=== PATIENT | female | born 1965 | race Caucasian/White ===

== ENCOUNTER 2024-10-02 20:11 | Emergency (ER) | payer BC, SELFPAY ==
--- NOTE | ~2024-10-02 | XR_ITS ---
HISTORY: Knee injury, twisted on Sunday COMPARISON: None TECHNIQUE: 3 views of the left knee were performed FINDINGS: No acute or subacute fracture, erosion, lytic or sclerotic lesion. Medial tibiofemoral joint space narrowing is identified. Small suprapatellar joint effusion is identified. The infrapatellar joint space is clear. IMPRESSION: Small suprapatellar joint effusion without focal infiltrate. Reviewed, dictated and finalized at location A.
[2024-10-02 20:12] VITALS: BP 145/98; PULSE 68; RESP 18; TEMP 36.2; O2SAT 100
--- OUTSIDE RECORDS SUMMARY | 2024-10-02 20:13 | XMS_ITS | Referral Summary ---
Author Organization [facility] at the [facility] Address [address] [place] [address] Care Team Providers Care Marine Safety Officer Name Role Phone Karuna Akins NP Primary Care Provider Allergies Active Allergy Reactions Criticality Noted Date Comments Clonidine Hcl Agitation Low 09/05/2018 Doxazosin Vomiting Low 09/05/2018 Flu Vaccine [id number](5yrup)Pf Vomiting Low 02/01 Monosodium Glutamate Swelling High 11/08/2015 Medications metoprolol XL (TOPROL-XL) 50 mg extended release tabletIndication s:Essential (primary) hypertension Take 1 tablet (50 mg total) by mouth daily 90 tablet 4 08/30/19 24 Active phentermine 37.5 mg capsuleIndicatio ns:BMI 35.0-35.9,adult Take 1 capsule by mouth in the morning 30 capsule 04/17/20 24 Active pregabalin (LYRICA) 75 mg capsuleIndicatio ns:Chronic bilateral low back pain without sciatica Take 1 capsule (75 mg total) by mouth 2 (two) times a day 60 capsule 3 06/19/19 25 Active traMADoL (ULTRAM) 50 mg tabletIndication s:Chronic bilateral low back pain without sciatica Take 1 tablet (50 mg total) by mouth every 6 (six) hours as needed for pain 120 tablet 4 06/19/19 25 Active zolpidem (AMBIEN) 10 mg tabletIndication s:Primary insomnia Take 1 tablet (10 mg total) by mouth nightly 30 tablet 3 06/19/19 25 Active amLODIPine (NORVASC) 10 mg tabletIndication s:Essential (primary) hypertension Take 1 tablet by mouth once daily 100 tablet 1 09/11/19 25 Active losartan (COZAAR) 100 mg tabletIndication s:Essential (primary) hypertension Take 1 tablet by mouth once daily 100 tablet 1 09/11/19 25 Active amLODIPine (NORVASC) 10 mg tabletIndication s:Essential (primary) hypertension Take 1 tablet by mouth once daily 90 tablet 08/12/19 25 025 Discontinued losartan (COZAAR) 100 mg tabletIndication s:Essential (primary) hypertension Take 1 tablet by mouth once daily 90 tablet 08/12/19 25 025 Discontinued Active Problems Problem Noted Date Diagnosed Date Status post bariatric surgery 11/05/2023 Obesity (BMI 30-39.9) 03/20/2022 Assessment & Plan (12/04/2022 2:49 PM CDT): Discussed the patients BMI: The BMI is above average BMI management is complete. BMI follow-up includes: Nutrition Counseling and education provided Discussed the patients BMI: The BMI is above average BMI management is complete. BMI follow-up includes: Nutrition Counseling and education provided Assessment & Plan (03/20/2022 9:12 AM CDT): Obesity is unchanged. Discussed the patient's BMI. The BMI is above average. BMI management plan is completed. BMI Follow-up includes: nutrition counseling, exercise counseling and education provided. Neck pain 08/19/2019 Left renal stone 04/22/2019 Pure hypercholesterolemia 09/24/2018 Chronic bilateral low back pain without sciatica 05/07/2017 Gastroesophageal reflux disease without esophagi tis 05/07/2017 Essential (primary) hypertension 08/18/2015 Insomnia 08/18/2015 Vitamin D deficiency 08/18/2015 Resolved Problems Problem Noted Date Diagnosed Date Resolved Date Cellulitis of multiple sites of head and neck 07/24/19 23 11/05/2023 Hypertensive urgency 07/24/2022 024 Ureteric stone 07/24/2022 06/19/2024 Urinary tract infectious disease 07/24/2022 06/19/2024 Obesity, Class I, BMI 30-34.9 07/24/2022 06/19/2024 Well child examination 07/24/202208/29 Renal pelvis enlarged on ultrasound 07/24/2022 06/19/2024 New onset of headaches after age 50 07/24/2022 06/19/2024 BMI 35.0-35.9,adult 03/20/2022 06/19/19 25 Assessment & Plan (03/20/2022 9:12 AM CDT): Obesity is unchanged. Discussed the patient's BMI. The BMI is above average. BMI management plan is completed. BMI Follow-up includes: nutrition counseling, exercise counseling and education provided. Right arm pain 10/21/2021 06/19/2024 Overview (10/21/2021): Have cervical x-rays completed. Start Lyrica 75 mg twice daily. Stop gabapentin. We will notify you of the x-ray results when they return BMI 28.0-28.9,adult 10/28/2020 03/20/20 22 Weight gain 12/30/2019 06/19/2024 Encounter for screening mamm ogram for malignant neoplasm of breast 08/19/2019 06/19/2024 BMI 34.0-34.9,adult 04/22/2019 03/20/20 22 Hypertension, essential 09/24/201810/26 Post-op pain 05/08/2017 06/19/2024 Post-operative nausea and vomiting 05/08/2017 06/19/2024 Benign hypertension 05/07/2017 11/05/19 24 Dyspnea on exertion 05/02/2017 11/05/19 24 Morbid obesity due to excess calories 09/21/2016 03/20/2022 Immunizations Immunization Administration Dates Next Due Influenza, Unspecified 06/19/2024(Deferr ed: Patient Refused),05/24/2023(Deferred: Patient Refused),08/24/2022(Deferred: Patient Refused),07/24/2022(Deferred: Patient Refused) Tdap 10/12/2012 Varicella 08/30/2023(Deferred: History of disease) Social History Tobacco Use Types Packs/Day Years Used Date Smoking Tobacco: Never Cigarettes Smokeless Tobacco: Never Tobacco Cessation:Counseling Given: Not Answered Alcohol Use Standard Drinks/Week Comments Not Currently 0 (1 standard drink = 0.6 oz pur e alcohol) AUDIT-C Answer Date Recorded Q1: How often do you have a drink containing alcohol? Never 08/30/2023 Q2: How many drinks containi ng alcohol do you have on a typical day when you are drinking? Patient does not drink Q3: How often do you have si x or more drinks on one occasion? Never 08/30/2023 PHQ-2 Answer Date Recorded PHQ-2 Total Score (If total score is 3 or more points, staff should administer the PHQ-9) 0 11/05/2023 Comments Unknown Sex and Gender Information Value Date Recorded Sex Assigned at Not on file Legal Sex Female 3:29 AM COMMUNITY SERVICE TECHNICIAN Gender Identity Not on file Sexual Orientation Not on file Last Filed Vital Signs Vital Sign Reading Time Taken Comments Blood Pressure 124/88 06/19/2024 8:36 AM COMMUNITY SERVICE TECHNICIAN Pulse 65 06/19/2024 8:36 AM COMMUNITY SERVICE TECHNICIAN Temperature 36.7 C (98 F) 06/19/2024 8:36 AM COMMUNITY SERVICE TECHNICIAN Respiratory Rate 16 06/19/2024 8:36 AM COMMUNITY SERVICE TECHNICIAN Oxygen Saturation 98% 06/19/2024 8:36 AM COMMUNITY SERVICE TECHNICIAN Inhaled Oxygen Concentration - - Weight 101.2 kg (223 lb) 06/19/2024 8:36 AM COMMUNITY SERVICE TECHNICIAN Height 170.2 cm (5' 7 ) 06/19/2024 8:36 AM COMMUNITY SERVICE TECHNICIAN Body Mass Index 34.93 06/19/2024 8:36 AM COMMUNITY SERVICE TECHNICIAN Plan of Treatment Not on file Procedures Procedure Name Priority Date/Time Associated Diagnosis Comments PAP AND HPV, REFLEX TO HPV GENOTYPES Routine 11/05/2023 1:37 PM CDT Encounter for well woman exam with routine gynecological exam HM COLONOSCOPY Routine 04/22/2017 SCREENING MAMMOGRAM 2D BILATERAL Routine 03/25/2013 2:48 PM CDT from Last 3 Months or Most Recently Relevant to Health Maintenance Results * Pap and HPV, reflex to HPV Genotypes (11/05/2023 1:37 PM CDT) Pathologist [facility] CLINICAL INFORMATION: [facility] Comment:Postmenopausal LMP [facility] Comment:2020 Previous Pap [facility] Comment:None given Prev. Bx [facility] Comment:None given SOURCE: [facility] Comment:Cervix, Endocervix Pap, specimen adequacy [facility] Comment:SATISFACTORY FOR MARTINE LUATION HPV interp [facility] Comment: Cytology Results: Negative for intraepithelial lesion or malignancy. Atrophic pattern; predominantly parabasal cells COMMENTS [facility] Comment: This Pap test has been evaluated with computer assisted technology. Title I Instructional Assistant [facility] Comment: CAK, CT(ASCP) CT Screening Location: [place] [address] [place] [address] Comment [facility] Comment: EXPLANATORY NOTE: The Pap is a screening test for cervical cancer. It is not a diagnostic test and is subject to false negative and false positive results. It is most reliable when a satisfactory sample, regularly obtained, is submitted with relevant clinical findings and history, and when the Pap result is evaluated along with historic and current clinical information. Human papillomavirus DNA, High Risk E6/E7 Not Detected NOT DETECTED [employer] [facility]ika [facility] Comment: Not Detected High Risk HPV types (16,18,31,33,35,39,45,51,52, 56,58,59,66,68) were not detected. Other HPV types which cause anogenital lesions may be present. The significance of the other types of HPV in malignant processes has not been established. Methodology: Real Time PCR Thin prep 11/05/2023 1:37 PM CDT 11/06/2023 4:02 AM CDT Karuna Akins PEDIATRIC ALLERGIST LAB CYTOLOGY ORDERABLES Final Result [facility] [address] [address] [employer]/[place] [address] [place] [address] * COLONOSCOPY (04/22/2017) Pathologist [facility]oscopy Normal Comment:Dr. Gallagher in [facility] s [place] Historical Provider HEALTH MAINTENANCE Final Result * Screening Mammogram 2D Bilateral (03/25/2013 2:48 PM CDT) Anatomical Region Laterality Modality Breast Bilateral Mammography 03/25/2013 2:48 PM CDT Impressions 03/25/2013 4:42 PM CDT No mammographic evidence of malignancy. Recommend routine annual screening mammography. ASSESSMENT: BIRADS: 1 - Negative A letter will be mailed to the patient with the results and recommendations. The patient will be entered into a reminder system for an annual screening mammogram in 1 year. THIS IS AN ELECTRONICALLY VERIFIED REPORT 03/25/2013 4:39 PM: Blaine Alba M.D. Blaine Alba M.D. MD: 04:39 PM 04:39 PM [facility] [EOD] Narrative 03/25/2013 4:42 PM CDT EXAMINATION: Bilateral screening mammography HISTORY: Routine screening mammogram. 48-year-old female with no prior reported breast procedures. Maternal aunt diagnosed with breast cancer at age 55. COMPARISON: 03/06/2011 TECHNIQUE: Bilateral digital full field of view mammography was performed, with the aid of computer aided detection (CAD). FINDINGS: Bilateral breast tissue is almost entirely fat density. No significant mass, microcalcifications, or other findings are seen. No suspicious interval change is seen relative to the prior studies. Procedure Note Provider, MD Sharon - 10/12/2020 EXAMINATION: Bilateral screening mammography HISTORY: Routine screening mammogram. 48-year-old female with no prior reported breast procedures. Maternal aunt diagnosed with breast cancer atage 55. COMPARISON: 03/06/2011 TECHNIQUE: Bilateral digital full field of view mammography wasperformed, with the aid of computer aided detection (CAD). FINDINGS: Bilateral breast tissue is almost entirely fat density. No significant mass, microcalcifications, or other findings are seen. No suspicious interval change is seen relative to the prior studies. IMPRESSION: No mammographic evidence of malignancy. Recommend routine annualscreening mammography. ASSESSMENT: BIRADS: 1 - Negative A letter will be mailed to the patient with the results andrecommendations. The patient will be entered into a reminder system for an annual screening mammogram in 1 year. THIS IS AN ELECTRONICALLY VERIFIED REPORT 03/25/2013 4:39 PM: Blaine Alba M.D. Blaine Alba M.D. MD: 04:39 PM 04:39 PM [facility] [EOD] Karuna Akins NP IMG MAMMO PROCEDURES Fi nal Result from Last 3 Months or Most Recently Relevant to Health Maintenance Insurance [facility] CHOICE PLUS Care Teams Marine Safety Officer Relationship Specialty Start Date End Date Karuna Akins NP [address] [address] PCP - General Family Medicine 08/30/23
--- OUTSIDE RECORDS SUMMARY | 2024-10-02 20:13 | XMS_ITS | Clinical Summary ---
Author Organization [facility] Address [address] [place] [address] Care Team Providers Care Pcas Name Role Phone Karuna Akins Primary Care Provider [phone] Allergies Active Allergy Reactions Criticality Noted Date Comments Clonidine Other (see comment),Anxiety,Unk nown Low 05/07/2017 Stated it made her very angry Stated it made her very angry Cyclobenzaprine GI Upset 02/04/2024 Doxazosin Unknown 09/05/2018 Influenza Virus Vaccine Unknown 02/01/2017 Monosodium Glutamate Unknown High 10/14/2012 Nsaids GI Upset 02/04/2024 Medications losartan (COZAAR) 100 MG tablet Take 1 tablet (100 mg total) by mouth daily. 12/04/2022 Active amLODIPine (NORVASC) 10 MG tablet Take 1 tablet (10 mg total) by mouth daily. 12/04/2022 Active zolpidem (AMBIEN) 10 MG tablet Take 0.5 tablets (5 mg total) by mouth nightly as needed. 12/04/2022 Active pregabalin (LYRICA) 75 MG capsule Take 1 capsule (75 mg total) by mouth 2 (two) times daily. 12/04/2022 Active traMADol (ULTRAM) 50 MG tablet Take 1 tablet (50 mg total) by mouth every 6 (six) hours as needed. 12/04/2022 Active HYDROcodone-yesi taminophen (NORCO) 5-325 MG tabletIndicatio ns:Acute Pain < 3 Day Supply Take 1 tablet by mouth every 6 (six) hours as needed for Pain. Indications: Acute Pain < 3 Day Supply 5 tablet 02/04/2024 Active Social History Tobacco Use Types Packs/Day Years Used Date Smoking Tobacco: Never Smokeless Tobacco: Never Tobacco Cessation:Counseling Given: Not Answered Alcohol Use Standard Drinks/Week Comments Never 0 (1 standard drink = 0.6 oz pur e alcohol) Comments No Sex and Gender Information Value Date Recorded Sex Assigned at Not on file Legal Sex Female 6:54 PM CDT Gender Identity Not on file Sexual Orientation Not on file Last Filed Vital Signs Vital Sign Reading Time Taken Comments Blood Pressure 123/96 02/04/2024 1:12 AM CDT Pulse 77 02/04/2024 1:12 AM CDT Temperature 36.1 C (97 F) 02/04/2024 1:12 AM CDT Respiratory Rate 20 02/04/2024 1:12 AM CDT Oxygen Saturation 100% 02/04/2024 1:12 AM CDT Inhaled Oxygen Concentration - - Weight 91.2 kg (201 lb) 02/04/2024 1:12 AM CDT Height 170.2 cm (5' 7 ) 02/04/2024 1:12 AM CDT Body Mass Index 31.48 02/04/2024 1:12 AM CDT Plan of Treatment Health Maintenance Due Date Last Done Comments Cervical Cancer Screening Pa p Smear (Age 30 to 64) Every 3 Years 1967 Colorectal Cancer Screening Colonoscopy (10 Years) 1967 Annual Physical 1970 Hepatitis C 1985 Hepatitis B Vaccines (1 of 3 - 19+ 3-dose series) 1986 Cervical Cancer Screening Pa p with HPV Testing (Age 30 to 64) Every 5 Years 1997 Cervical Cancer Screening with HPV 1997 Mammogram Screening 03/25/2015 03/25/2013 Pneumococcal Vaccine: 50+ Ye ars (1 of 1 - PCV) 2017 Zoster Vaccines (1 of 2) 2017 DTaP, Tdap and Td Vaccines ( 2 - Td or Tdap) 10/12/2022 10/12/2012 COVID-19 Vaccine (2023-2 5 season) 2024 Meningococcal B Vaccine Aged Out No l onger eligible based on patient's age to complete this topic Meningococcal Vaccine Aged Out No robbie maggie eligible based on patient's age to complete this topic RSV Immunizations Under 20 Months Aged Out No longer eligible based on patient's age to complete this topic Insurance [facility] [address] Care Teams Pcas Relationship Specialty Start Date End Date Karuna Akins APNP [address] [id number] PCP - General NURSE PRACTITIONER 01/05/24
--- OUTSIDE RECORDS SUMMARY | 2024-10-02 20:13 | XMS_ITS | Clinical Summary ---
Author Organization [facility] at [facility] Address [address] [place] [address] Care Team Providers Care Tack Picker Name Role Phone Karuna Akins NP Primary Care Provider Allergies Active Allergy Reactions Criticality Noted Date Comments Clonidine Hcl Agitation Low 09/05/2018 Doxazosin Vomiting Low 09/05/2018 Flu Vaccine [id number](5yrup)Pf Vomiting Low 02/01 Monosodium Glutamate Swelling High [...] Tdap 10/12/2012 Varicella 08/30/2023(Deferred: History of disease) Surgical History Surgery Date Site/Laterality Comments SECTION BARIATRIC SURGERY KIDNEY STONE SURGERY 04/15/2019 stent for kidney stone left Medical History Medical History Date Comments HTN (hypertension) Insomnia Morbid obesity (HCC) Anxiety Depression Thyroid disease Neuromuscular disorder (HCC) Kidney stone Family History Medical History Relation Name Comments Asthma Brother Yair Alcohol abuse Father Yair brandlos Asthma Father Yair brandlos COPD Father Yair brandlos Cancer Father Yair brandlos Hearing loss Father Yair brandlos Heart disease Father Yair brandlos Hypertension Father Yair brandlos Arthritis Mother Sherlyn Diabetes Mother Sherlyn Hypertension Mother Sherlyn Miscarriages / Stillbirths Sister 1 Luisa Obesity Sister 2 Julissa Drug abuse Son 1 Leo Drug abuse Son 2 Rell Relation Name Status Comments Brother Yair Father Yair espinosas Mother Sherlyn Alive Sister 1 Luisa Sister 2 Julissa Son 1 Leo Son 2 Rell Social History Tobacco Use Types Packs/Day Years [...] on file Legal Sex Female 3:29 AM LOAN OFFICER ASSISTANT Gender Identity Not on file Sexual Orientation Not on file Obstetrics History Last Filed Vital Signs Vital Sign Reading Time Taken Comments Blood Pressure 124/88 06/19/2024 8:36 AM LOAN OFFICER ASSISTANT Pulse 65 06/19/2024 8:36 AM LOAN OFFICER ASSISTANT Temperature 36.7 C (98 F) 06/19/2024 8:36 AM LOAN OFFICER ASSISTANT Respiratory Rate 16 06/19/2024 8:36 AM LOAN OFFICER ASSISTANT Oxygen Saturation 98% 06/19/2024 8:36 AM LOAN OFFICER ASSISTANT Inhaled Oxygen Concentration - - Weight 101.2 kg (223 lb) 06/19/2024 8:36 AM LOAN OFFICER ASSISTANT Height 170.2 cm (5' 7 ) 06/19/2024 8:36 AM LOAN OFFICER ASSISTANT Body Mass Index 34.93 06/19/2024 8:36 AM LOAN OFFICER ASSISTANT Plan of Treatment Health Maintenance Due Date Last Done Comments Hepatitis C Screening 1967 Hepatitis B Screening 1985 Breast Cancer Screening-Mammogram 03/25/2014 03/25/2013 Zoster Vaccine (1 of 2) 2017 DTaP/Tdap/Td Vaccine (2 - Td or Tdap) 10/12/2022 10/12/2012 Cervical Cancer Screening 11/04/2024 11/05/2023 Depression Screening 11/04/2024 11/05/2023, 12/04/2022, 10/21/2021, Additional history exists Regular Well Visit/Exam 18-64 11/04/2024 11/05/2023, 03/20/2022 Influenza Vaccine (Season Ended) 2025 Colon Cancer Screening-Colonoscopy 04/22/2027 04/22/2017 Colon Cancer Screening-CT Colonography Discontinued 04/22/2017 Colon Cancer Screening-DNA Stool Discontinued 04/22/2017 Colon Cancer Screening-FIT Discontinued 04/22/2017 Colon Cancer Screening-Sigmoidoscopy Discontinued 04/22/2017 Pneumococcal vaccine <65 Aged Out No longer eligible based on patient's age to complete this topic Procedures Procedure Name Priority Date/Time Associated Diagnosis [...] to HPV Genotypes (11/05/2023 1:37 PM CDT) [facility] Comment:2019 [facility] Comment:None given [facility]v. Bx [facility] Comment:None given [facility]OURCE: [facility] Comment:Cervix, Endocervix Pap, specimen adequacy [facility] Comment:SATISFACTORY FOR MARTINE LUATION HPV interp [facility] Comment: Cytology Results: Negative for intraepithelial lesion or malignancy. Atrophic pattern; predominantly parabasal cells COMMENTS [facility] Comment: This Pap test has been evaluated with computer assisted technology. J2E[employer] Application Developer [facility] Comment: CAK, CT(ASCP) CT Screening Location: [place] [address] [place] [address] Comment [facility] Comment: EXPLANATORY NOTE: The Pap is a [...] High Risk E6/E7 Not Detected NOT DETECTED [employer] /[facility]ika [facility] [place] Comment: Not Detected High Risk HPV types (16,18,31,33,35,39,45,51,52, 56,58,59,66,68) were not detected. Other HPV types which cause anogenital lesions may be present. The significance of the other types of HPV in malignant processes has not been established. Methodology: Real Time PCR Thin prep 11/05/2023 1:37 PM CDT 11/06/2023 4:02 AM CDT Karuna Akins CORE ASSEMBLY SUPERVISOR LAB CYTOLOGY ORDERABLES Final Result [place] [address] [place] [address] [employer] [address] [place] [address] * COLONOSCOPY (04/22/2017) Colonoscopy Normal Comment:Dr. Gallagher in [facility] Historical Provider HEALTH MAINTENANCE Final Result * [...] Alba M.D. MD: 04:39 PM 04:39 PM [facility] [EOD] Narrative 03/25/2013 4:42 PM CDT EXAMINATION: [...] Alba M.D. MD: 04:39 PM 04:39 PM [facility] [EOD] Karuna Akins NP IMG MAMMO PROCEDURES Fi nal Result from Last 3 Months or Most Recently Relevant to Health [place] [address] [facility] CHOICE PLUS Care Teams Tack Picker Relationship Specialty Start Date End Date Karuna Akins NP [address] [facility] [address] [place] [address] PCP - General Family Medicine 08/30/23
--- NOTE | 2024-10-02 20:15 | PC.NURSE ---
DR PHILLIPS AT THE BEDSIDE
[2024-10-02] MEDS: KETOROLAC (*BKC) 60 MG/2 ML VIAL IM (20:20)
--- NOTE | 2024-10-02 20:27 | PC.NURSE ---
PATIENT BEING TRANSPORTED TO [facility] VIA WHEEL CHAIR
--- NOTE | 2024-10-02 20:37 | PC.NURSE ---
PATIENT RETURNED TO ROOM 1 VIA WHEEL CHAIR
--- NOTE | 2024-10-02 20:46 | ED.LOWEXIN ---
HPI - Extremity Injury (Lower) General Chief Complaint: Extremity Injury, Lower Stated Complaint: knee pain Time Seen by Provider: 10/02/24 20:17 Source: patient Mode of arrival: ambulatory Limitations: no limitations History of Present Illness HPI Narrative: this is a 59-year-old female with history of. Gastric surgery presents after she stepped in pothole twisting her left knee causing pain and swelling has been taking pain medication with little relief, no other injuries noted there is tenderness in the left knee with palpation and movement. complaint: knee injury Onset (ago): day(s) Injury: Left: knee ( Pain with swelling) Type of Injury: inversion Place: street/outdoors Severity: moderate Severity scale (1-10): 6 Relieving factors: immobilization and rest Exacerbating factors: weight bearing, movement and palpation Related Data Home Medications ?Medication ?Instructions ?Recorded ?Confirmed ?Last Taken ?Type amlodipine 10 mg tablet 10 mg PO DAILY 05/15/19 05/15/19 Unknown History cephalexin 500 mg capsule 500 mg PO DAILY 05/15/19 05/15/19 Unknown History hydrocodone 7.5 mg-acetaminophen 1 tablet PO Q6-12H PRN Pain, 05/15/19 05/15/19 Unknown History 325 mg tablet Moderate losartan 25 mg tablet 25 mg PO DAILY 05/15/19 05/15/19 Unknown History ondansetron 4 mg disintegrating 4 mg PO Q8-10H PRN Nausea 05/15/19 05/15/19 Unknown History tablet phenazopyridine 100 mg tablet 100 mg PO DAILY 05/15/19 05/15/19 Unknown History (Pyridium) tramadol 50 mg tablet 50 mg PO Q6H PRN Pain 05/15/19 05/15/19 Unknown History zolpidem 10 mg tablet (Ambien) 10 mg PO HS 05/15/19 05/15/19 Unknown History Allergies Allergy/AdvReac Type Severity Reaction Status Date / Time clonidine Allergy Intermediate Anxiety Verified 10/02/24 20:17 monosodium glutamate Allergy Unknown Verified 10/02/24 20:17 Review of Systems Review of Systems: All systems reviewed & are unremarkable except as noted in HPI and below PMFSH Past Medical History Medical History (Updated 10/02/24 @ 20:50 by Jonnie Moore MD) HTN (hypertension) Kidney stones Social History Social History Smoking status: Never smoker Alcohol intake: never Substance use: never Substance use type: does not use Gender identity (if verbalized by the patient): Female Spiritual care concerns: No Agree to blood products: Yes Exam Const: General: healthy appearing and no acute distress Nutritional Appearance: well nourished Orientation/consciousness: patient oriented x3 Limitations: no limitations Neck: Neck: normal visual inspection Chest: Chest palpation & inspection: normal inspection of the chest Resp: Effort & Inspection: normal respiratory effort Auscultation: clear to auscultation bilaterally Cardio: Rate: regular rate Rhythm: regular rhythm GI: GI Palp: Yes Soft to palpation Auscultation: normal bowel sounds : General: Yes bladder normal to palpation Skin: General skin exam: normal color Rashes: no rashes Wounds: no wounds Neuro: General: patient oriented x3, moves all extremities, no meningeal signs and no focal motor deficits Extrem: Other: left medial knee pain with palpation and movement Course Course Emergency Course: patient received 60mg IM Toradol and x-ray of the left knee shows no acute fractures. Alexi wrap applied. Vital Signs Vital signs: Vital Signs Temperature 36.2 C L 10/02/24 20:12 Pulse Rate 68 10/02/24 20:12 Respiratory Rate 18 10/02/24 20:12 Blood Pressure 145/98 H 10/02/24 20:12 Pulse Oximetry 100 10/02/24 20:12 Oxygen Delivery Room Air 10/02/24 20:12 Temperature 36.2 C L 10/02/24 20:12 Pulse Rate 68 10/02/24 20:12 Respiratory Rate 18 10/02/24 20:12 Blood Pressure 145/98 H 10/02/24 20:12 Pulse Oximetry 100 10/02/24 20:12 Oxygen Delivery Room Air 10/02/24 20:12 Critical Care Time Critical Care Time Critical Care Time: No Discharge Plan Discharge Clinical Impression: Left knee sprain Qualifiers: Encounter type: initial encounter Involved ligament of knee: medial collateral ligament Qualified Code(s): S83.412A - Sprain of medial collateral ligament of left knee, initial encounter Patient Disposition: Home Condition: Stable Instructions: Antibiotic Form, Knee Sprain (ED) Additional Instructions: advised to take medication the patient had been prescribed for pain, Tylenol as needed Alexi wrap can apply ice rest and elevation and follow-up with primary symptoms persist or worsen. Patient Language: Ukrainian Prescriptions: No Action phenazopyridine [Pyridium] 100 mg tablet 100 mg PO DAILY amlodipine 10 mg tablet 10 mg PO DAILY hydrocodone-acetaminophen 7.5-325 mg tablet 1 tablet PO Q6-12H PRN (Reason: Pain, Moderate) cephalexin 500 mg capsule 500 mg PO DAILY ondansetron 4 mg tablet,disintegrating 4 mg PO Q8-10H PRN (Reason: Nausea) tramadol 50 mg Tablet 50 mg PO Q6H PRN (Reason: Pain) losartan 25 mg Tablet 25 mg PO DAILY zolpidem [Ambien] 10 mg Tablet 10 mg PO HS sennosides-docusate sodium [Senokot-S] 8.6-50 mg Tablet 1 tab PO DAILY PRN (Reason: Constipation) 30 Days 0RF acetaminophen 500 mg Tablet 1,000 mg PO TID 5 Days Qty: 30 0RF bisacodyl [Laxative (bisacodyl)] 5 mg Tablet,Delayed Release (Dr/Ec) 5 mg PO QAM 30 Days Qty: 30 0RF Follow-up/Referrals: PHYSICIAN NOT ON STAFF,NONSTAFF [Primary Care Provider] -
--- OUTSIDE RECORDS SUMMARY | 2024-10-02 20:59 | XMS_ITS | Clinical Summary ---
Author Organization [facility] Address [address] [place] [address] Care Team Providers Care System Archive Analyst Name Role Phone Karuna Akins Primary Care Provider +1- [phone] Allergies Active Allergy Reactions Criticality Noted Date [...] patient's age to complete this topic Insurance [facility] Care Teams System Archive Analyst Relationship Specialty Start Date End Date Karuna Akins APNP [address] [id number] PCP - General NURSE PRACTITIONER 01/05/24
--- OUTSIDE RECORDS SUMMARY | 2024-10-02 20:59 | XMS_ITS | Referral Summary ---
Author Organization [facility] at the [facility] Address [address] [place] [address] Care Team Providers Care Final Dressing Cutter Name Role Phone Karuna Akins NP Primary Care Provider Allergies Active Allergy Reactions Criticality Noted Date Comments Clonidine Hcl Agitation Low 09/05/2018 Doxazosin Vomiting Low 09/05/2018 Flu Vaccine [id number](5yrup)Pf Vomiting Low 02/01 Monosodium Glutamate Swelling High [...] on file Legal Sex Female 3:29 AM CABLE SWAGER Gender Identity Not on file Sexual Orientation Not on file Last Filed Vital Signs Vital Sign Reading Time Taken Comments Blood Pressure 124/88 06/19/2024 8:36 AM CABLE SWAGER Pulse 65 06/19/2024 8:36 AM CABLE SWAGER Temperature 36.7 C (98 F) 06/19/2024 8:36 AM CABLE SWAGER Respiratory Rate 16 06/19/2024 8:36 AM CABLE SWAGER Oxygen Saturation 98% 06/19/2024 8:36 AM CABLE SWAGER Inhaled Oxygen Concentration - - Weight 101.2 kg (223 lb) 06/19/2024 8:36 AM CABLE SWAGER Height 170.2 cm (5' 7 ) 06/19/2024 8:36 AM CABLE SWAGER Body Mass Index 34.93 06/19/2024 8:36 AM CABLE SWAGER Plan of Treatment Not on file Procedures [...] HPV Genotypes (11/05/2023 1:37 PM CDT) Pathologist [facility] CLINICAL INFORMATION: [facility] Comment:Postmenopausal LMP [facility] Comment:2020 Previous Pap [facility] Comment:None given Prev. Bx [facility] Comment:None given SOURCE: [facility] Comment:Cervix, Endocervix Pap, specimen adequacy [facility] Comment:SATISFACTORY FOR MARTINE LUATION HPV interp [facility] Comment: Cytology Results: Negative for intraepithelial lesion or malignancy. Atrophic pattern; predominantly parabasal cells COMMENTS [facility] Comment: This Pap test has been evaluated with computer assisted technology. Director [employer] [facility] Comment: CAK, CT(ASCP) CT Screening Location: [place] [address] [place] [address] Comment [facility] Comment: EXPLANATORY NOTE: The Pap is a [...] High Risk E6/E7 Not Detected NOT DETECTED [employer] /Monika PONCE Comment: Not Detected High Risk HPV types (16,18,31,33,35,39,45,51,52, 56,58,59,66,68) were not detected. Other HPV types which cause anogenital lesions may be present. The significance of the other types of HPV in malignant processes has not been established. Methodology: Real Time PCR Thin prep 11/05/2023 1:37 PM CDT 11/06/2023 4:02 AM CDT Karuna Akins PARKING METER COLLECTOR LAB CYTOLOGY ORDERABLES Final Result [facility] [address] [place] [address] Take the Interview/[place] [address] [facility] [place] [address] * COLONOSCOPY (04/22/2017) Pathologist [facility] Colonoscopy Normal Comment:Dr. Gallagher in [facility] s [place] Historical Provider HEALTH MAINTENANCE Final [...] Alba M.D. MD: 04:39 PM 04:39 PM [facility] [EOD] Karuna Akins NP IMG MAMMO PROCEDURES Fi nal Result from Last 3 Months or Most Recently Relevant to Health Maintenance Insurance [facility] CHOICE PLUS [facility] HMO/PPO Address: [facility] [address] [place] [address] Care Teams Final Dressing Cutter Relationship Specialty Start Date End Date Karuna Akins NP [address] [address] PCP - General Family Medicine 08/30/23
--- OUTSIDE RECORDS SUMMARY | 2024-10-02 20:59 | XMS_ITS | Clinical Summary ---
Author Organization [facility] at the [facility] Address [address] [place] [address] Care Team Providers Care Center Aisle Cashier Name Role Phone Karuna Akins NP Primary Care Provider Allergies Active Allergy Reactions Criticality Noted Date Comments Clonidine Hcl Agitation Low 09/05/2018 Doxazosin Vomiting Low 09/05/2018 Flu Vaccine [id number](5yrup)Pf Vomiting Low 02/01 Monosodium Glutamate Swelling High [...] on file Legal Sex Female 3:29 AM ENVIRONMENTAL RESOURCE SPECIALIST Gender Identity Not on file Sexual Orientation Not on file Obstetrics History Last Filed Vital Signs Vital Sign Reading Time Taken Comments Blood Pressure 124/88 06/19/2024 8:36 AM ENVIRONMENTAL RESOURCE SPECIALIST Pulse 65 06/19/2024 8:36 AM ENVIRONMENTAL RESOURCE SPECIALIST Temperature 36.7 C (98 F) 06/19/2024 8:36 AM ENVIRONMENTAL RESOURCE SPECIALIST Respiratory Rate 16 06/19/2024 8:36 AM ENVIRONMENTAL RESOURCE SPECIALIST Oxygen Saturation 98% 06/19/2024 8:36 AM ENVIRONMENTAL RESOURCE SPECIALIST Inhaled Oxygen Concentration - - Weight 101.2 kg (223 lb) 06/19/2024 8:36 AM ENVIRONMENTAL RESOURCE SPECIALIST Height 170.2 cm (5' 7 ) 06/19/2024 8:36 AM ENVIRONMENTAL RESOURCE SPECIALIST Body Mass Index 34.93 06/19/2024 8:36 AM ENVIRONMENTAL RESOURCE SPECIALIST Plan of Treatment Health Maintenance Due Date [...] Genotypes (11/05/2023 1:37 PM CDT) [facility] Comment:2019 [facility] Comment:None given Prev. Bx [facility] Comment:None given SOURCE: [facility] Comment:Cervix, Endocervix Pap, specimen adequacy [facility] Comment:SATISFACTORY FOR MARTINE LUATION HPV interp [facility] Comment: Cytology Results: Negative for intraepithelial lesion or malignancy. Atrophic pattern; predominantly parabasal cells COMMENTS [facility] Comment: This Pap test has been evaluated with computer assisted technology. Exhaust Machine Operator [employer]egan [facility] Comment: CAK, CT(ASCP) CT Screening Location: [place] [address] [place] [address] Comment [facility] Comment: EXPLANATORY NOTE: The Pap is a [...] High Risk E6/E7 Not Detected NOT DETECTED [employer] /Monika real [place] Comment: Not Detected High Risk HPV types (16,18,31,33,35,39,45,51,52, 56,58,59,66,68) were not detected. Other HPV types which cause anogenital lesions may be present. The significance of the other types of HPV in malignant processes has not been established. Methodology: Real Time PCR Thin prep 11/05/2023 1:37 PM CDT 11/06/2023 4:02 AM CDT Karuna Akins DEMOGRAPHIC ANALYST LAB CYTOLOGY ORDERABLES Final Result [place] [address] [place] [address] [employer] [address] [facility] [place] [address] * COLONOSCOPY (04/22/2017) Colonoscopy Normal Comment:Dr. Gallagher in [facility] Historical Provider HEALTH MAINTENANCE Final Result * [...] Alba M.D. MD: 04:39 PM 04:39 PM [facility] [EOD] Narrative 03/25/2013 4:42 PM CDT [...] Alba M.D. MD: 04:39 PM 04:39 PM [facility] [EOD] Karuna Akins NP IMG MAMMO PROCEDURES Fi nal Result from Last 3 Months or Most Recently Relevant to Health [place] [address] [facility] CHOICE PLUS Care Teams Center Aisle Cashier Relationship Specialty Start Date End Date Karuna Akins NP [address] [facility] [address] [place] [address] PCP - General Family Medicine 08/30/23
[2024-10-02 21:17] VITALS: BP 138/88; PULSE 74; RESP 16; O2SAT 100
== END 2024-10-02 21:17 | disposition home or self-care (01) ==
LOC: CHSED 20:58
PROVIDERS: Emergency Provider Emergency Medicine
DX: S83.412A Sprain of medial collateral ligament of left knee, initial encounter (principal); I10 Essential (primary) hypertension; W17.2XXA Fall into hole, initial encounter
CPT/HCPCS: 73562; 96372; 99283; J1885

== ENCOUNTER 2025-05-26 12:38 | Emergency (ER) | payer BC, SELFPAY ==
--- NOTE | ~2025-05-26 | XR_ITS ---
EXAMINATION: XR knee LT 3V DATE: 05/26/2025 13:07 INDICATION: Left knee injury post fall down stairs TECHNIQUE: Anteroposterior, sunrise and crosstable lateral views of the left knee were obtained COMPARISON: 10/02/2024 FINDINGS: Alignment is normal. No fracture. At least mild joint space narrowing the medial compartment and small marginal osteophytes in all 3 compartments consistent with mild tricompartmental osteoarthritis. Severity of joint space narrowing can however be underestimated on nonweightbearing imaging. Small ent hesophyte along the patellar insertion of the distal quadriceps tendon. Small to moderate-sized left knee joint effusion without layering lipohemarthrosis. Soft tissues are otherwise unremarkable. IMPRESSION: 1. Small to moderate-sized left knee joint effusion without evident acute osseous abnormality. 2. Mild tricompartmental osteoarthritis of the left knee. Reviewed, dictated and finalized at location A. [facility] IMPRESSION: 1. Small to moderate-sized left knee joint effusion without evident acute osseo us abnormality. 2. Mild tricompartmental osteoarthritis of the left knee.
[2025-05-26 12:38] VITALS: BP 127/78; PULSE 85; RESP 16; TEMP 36.4; O2SAT 98
--- OUTSIDE RECORDS SUMMARY | 2025-05-26 13:00 | XMS_ITS | Clinical Summary ---
Author Organization [facility] Address [address] [place] [address] Care Team Providers Care Certified Welding Inspector Name Role Phone Karuna Akins Primary Care Provider +1- [phone] Allergies Active Allergy Reactions Criticality Noted Date [...] 1:12 AM CDT Height 170.2 cm (5' 7) 02/04/2024 1:12 AM CDT Body Mass Index [...] Td or Tdap) 10/12/2022 10/12/2012 COVID-19 Vaccine (2024-2 6 season) 2025 Influenza Adult (#1) 2025 Hepatitis A Vaccines Aged Out No long er eligible based on patient's age to complete this topic Meningococcal B Vaccine Aged Out No l onger eligible based on patient's age to complete this topic Meningococcal Vaccine Aged Out No robbie maggie eligible based on patient's age to complete this topic RSV Immunizations Under 20 Months Aged Out No longer eligible based on patient's age to complete this topic Insurance [facility] Care Teams Certified Welding Inspector Relationship Specialty Start Date End Date Karuna Akins APNP PCP - General NURSE PRACTITIONER 01/05/24
--- OUTSIDE RECORDS SUMMARY | 2025-05-26 13:00 | XMS_ITS | Encounter Summary ---
Author Organization [facility] Address [address] [place] [address] Care Team Providers Care Director Meetings Name Role Phone Unavailable Primary Care Provider Unavailabl e Encounter Details Date Type Department Care Team (Late st Contact Info) Description 06/18/2004 Emergency [facility] Emergency Department [address] [place] [address] Lakesha Malone FNP NO ADDRESS ON FILE SPRAIN LUMBAR REGION (Primary Dx) Social History Tobacco Use Types Packs/Day Years Used Date Smoking Tobacco: Never Assessed Comments Unknown Sex and Gender Information Value Date Recorded Sex Assigned at Not on file Legal Sex Female 3:57 AM QUANTITATIVE CONSULTANT Gender Identity Not on file Sexual Orientation Not on file documented as of this encounter Plan of Treatment Not on file documented as of this encounter Procedures Procedure Name Priority Date/Time Associated Diagnosis Comments POC CREATININE Routine 06/19/2004 3:06 AM QUANTITATIVE CONSULTANT documented in this encounter Results * (ABNORMAL) POC CREATININE (06/19/2004 3:06 AM QUANTITATIVE CONSULTANT) CREATININE POC 0.5(L) 0.7 - 1.2 mg/dL INTERFACE SYSTEM 06/19/2004 3:06 AM QUANTITATIVE CONSULTANT us J Frank Badillo MD POINT OF CARE TESTING Final Res ult INTERFACE SYSTEM Refer to clinic/hospital department documented in this encounter Visit Diagnoses Diagnosis Sprain of lumbar region- Primary documented in this encounter
--- OUTSIDE RECORDS SUMMARY | 2025-05-26 13:00 | XMS_ITS | Encounter Summary ---
Author Organization [facility] Address [address] [place] [address] Care Team Providers Care Machine Marker Name Role Phone Unavailable Primary Care Provider Unavailabl e Encounter Details Date Type Department Care Team (Latest Contact Info) Description 10/18/1999 Outpatient Historical [facility]- [address] [address] Mickey Plasencia DO NO ADDRESS ON FILE Open wound of hand except finger(s) alone, without mention of complication (Primary Dx) Social History Tobacco Use Types Packs/Day Years Used Date Smoking Tobacco: Never Assessed Comments Unknown Sex and Gender Information Value Date Recorded Sex Assigned at Not on file Legal Sex Female 3:57 AM HEARING AIDE TECHNICIAN Gender Identity Not on file Sexual Orientation Not on file documented as of this encounter Plan of Treatment Not on file documented as of this encounter Visit Diagnoses Diagnosis Open wound of hand except finger(s) alone, without mention of complication- Primary documented in this encounter
--- OUTSIDE RECORDS SUMMARY | 2025-05-26 13:00 | XMS_ITS | Clinical Summary ---
Author Organization [facility] Address [address] [place] [address] Care Team Providers Care Case Filler Name Role Phone Karuna Akins NP Primary Care Provider Allergies Active Allergy Reactions Criticality Noted Date Comments Clonidine Hcl Agitation Low 09/05/2018 Doxazosin Vomiting Low 09/05/2018 Flu Vaccine [id number](5yrup)Pf Vomiting Low 02/01 Monosodium Glutamate Swelling High 11/08/2015 Medications metoprolol XL (TOPROL-XL) 50 mg extended release tabletIndications:Essent ial (primary) hypertension Take 1 tablet (50 mg total) by mouth daily 90 tablet 3 01/15/20 25 Active losartan (COZAAR) 100 mg tabletIndications:Essent ial (primary) hypertension Take 1 tablet (100 mg total) by mouth daily 90 tablet 3 01/15/20 25 Active amLODIPine (NORVASC) 10 mg tabletIndications:Essent ial (primary) hypertension Take 1 tablet (10 mg total) by mouth daily 90 tablet 3 01/15/20 25 Active phentermine 37.5 mg capsuleIndications:BMI 35.0-35.9,adult Take 1 capsule (37.5 mg total) by mouth every morning 30 capsule 2 01/15/20 25 Active zolpidem (AMBIEN) 10 mg tabletIndications:Primar y insomnia Take 1 tablet (10 mg total) by mouth nightly 30 tablet 5 01/15/20 25 Active traMADoL (ULTRAM) 50 mg tabletIndications:Chroni c bilateral low back pain without sciatica Take 1 tablet (50 mg total) by mouth every 6 (six) hours as needed for pain 120 tablet 4 01/15/20 25 Active pregabalin (LYRICA) 75 mg capsuleIndications:Chron ic bilateral low back pain without sciatica Take 1 capsule (75 mg total) by mouth 2 (two) times a day 60 capsule 5 01/15/20 25 Active rosuvastatin (CRESTOR) 5 mg tabletIndications:Pure hypercholesterolemia Take 1 tablet (5 mg total) by mouth daily 30 tablet 6 01/17/20 25 026 Active Active Problems Problem Noted Date Diagnosed Date Status post bariatric surgery 11/05/2023 Annual physical exam 07/24/2022 Assessment & Plan (01/14/2025 1:37 PM CDT): Follow-up 1 year for annual physical. Continue eating healthy. Limit processed foods like white starches, fast food, sweets and soda. Increase your vegetable intake and limit red meat. Continue exercising and wearing your seatbelt at all times. No texting and driving. Continue to manage your stress in a healthy manner. Obesity (BMI 30-39.9) 03/20/2022 Assessment & Plan [...] of multiple sites of head and neck 07/24/1911/05/2023 Hypertensive urgency 07/24/2022 024 Ureteric stone 07/24/2022 06/19/2024 Urinary tract infectious disease 07/24/2022 06/19/2024 Obesity, Class I, BMI 30-34.9 07/24/2022 06/19/2024 Renal pelvis enlarged on ultrasound 07/24/2022 06/19/2024 [...] (HCC) Anxiety Depression Thyroid disease Neuromuscular disorder Kidney stone Family History Medical History Relation Name Comments Asthma Brother Bill Alcohol abuse Father Bill gatlos Asthma Father Bill gatlos COPD Father Bill gatlos Cancer Father Bill gatlos Hearing loss Father Bill gatlos Heart disease Father Bill gatlos Hypertension Father Bill gatlos Arthritis Mother Sherlyn Diabetes Mother Sherlyn Hypertension Mother Sherlyn Miscarriages / Stillbirths Sister 1 Luisa Obesity Sister 2 Julissa Drug abuse Son 1 Leo Drug abuse Son 2 Rell Relation Name Status Comments Brother Yair Father Yair gatlos Mother Sherlyn Alive Sister 1 Luisa Sister [...] on file Legal Sex Female 3:29 AM TECHNOLOGY SALES CONSULTANT Gender Identity Not on file Sexual Orientation Not on file Last Filed Vital Signs Vital Sign Reading Time Taken Comments Blood Pressure 124/80 01/14/2025 1:20 PM CDT Pulse 77 01/14/2025 1:20 PM CDT Temperature 36.7 C (98 F) 06/19/2024 8:36 AM TECHNOLOGY SALES CONSULTANT Respiratory Rate 18 01/14/2025 1:20 PM CDT Oxygen Saturation 99% 01/14/2025 1:20 PM CDT Inhaled Oxygen Concentration - - Weight 105.7 kg (233 lb) 01/14/2025 1:20 PM CDT Height 170.2 cm (5' 7) 01/14/2025 1:20 PM CDT Body Mass Index 36.49 01/14/2025 1:20 PM CDT Plan of Treatment Health Maintenance Due Date Last Done Comments Hepatitis C Screening 1967 Hepatitis B Screening 1985 Breast Cancer Screening-Mammogram 03/25/2014 03/25/2013 Zoster Vaccine (1 of 2) 2017 DTaP/Tdap/Td Vaccine (2 - Td or Tdap) 10/12/2022 10/12/2012 Cervical Cancer Screening 11/04/2024 11/05/2023 Depression Screening 11/04/2024 11/05/2023, 12/04/2022, 10/21/2021, Additional history exists Influenza Vaccine (#1) 2025 Regular Well Visit/Exam 18-64 01/14/2026 01/14/2025, 11/05/2023, 03/20/2022 Colon Cancer Screening-Colonoscopy 04/22/2027 04/22/2017 Colon Cancer [...] Genotypes (11/05/2023 1:37 PM CDT) CLINICAL INFORMATION: [facility] Comment:Postmenopausal LMP [facility] Comment:2020 Previous Pap [facility] Comment:None given Prev. Bx [facility] Comment:None given SOURCE: [facility] Comment:Cervix, Endocervix Pap, specimen adequacy [facility] Comment:SATISFACTORY FOR MARTINE LUATION HPV interp [facility] Comment: Cytology Results: Negative for intraepithelial lesion or malignancy. Atrophic pattern; predominantly parabasal cells COMMENTS [facility] Comment: This Pap test has been evaluated with computer assisted technology. Laser Cutter [facility] Comment: CAK, CT(ASCP) CT Screening Location: [place] [address] [place] [address] Comment [facility] Comment: EXPLANATORY NOTE: The Pap [...] High Risk E6/E7 Not Detected NOT DETECTED [employer] [facility]Monika [facility] Comment: Not Detected High Risk HPV types (16,18,31,33,35,39,45,51,52, 56,58,59,66,68) were not detected. Other HPV types which cause anogenital lesions may be present. The significance of the other types of HPV in malignant processes has not been established. Methodology: Real Time PCR Thin prep 11/05/2023 1:37 PM CDT 11/06/2023 4:02 AM CDT Karuna Akins ENGLISH DIVISION CHAIR LAB CYTOLOGY ORDERABLES Final Result [facility] [address] [place] [address] Jung White/[place] [address] [facility] [place] [address] * HM COLONOSCOPY (04/22/2017) HM Colonoscopy Normal Comment:Dr. Gallagher in [facility] s us Historical Provider [facility] Final Result * Screening Mammogram 2D Bilateral [...] Alba M.D. MD: 04:39 PM 04:[address] [facility] [EOD] Narrative 03/25/2013 4:42 PM CDT EXAMINATION: [...] to the prior studies. Procedure Note Provider, Sharon, - 10/12/2020 EXAMINATION: Bilateral screening mammography HISTORY: [...] Alba M.D. MD: 04:39 PM 04:[address] [facility] [EOD] Karuna Akins ENGLISH DIVISION CHAIR IMG MAMMO PROCEDURES Fi nal Result from Last 3 Months or Most Recently Relevant to Health Maintenance Insurance Care Teams Case Filler Relationship Specialty Start Date End Date Karuna Akins NP PCP - General Family Medicine 08/30/23
--- OUTSIDE RECORDS SUMMARY | 2025-05-26 13:00 | XMS_ITS | Encounter Summary ---
Author Organization [facility] Address [address] [place] [address] Care Team Providers Care Medical Anthropologist Name Role Phone Unavailable Primary Care Provider Unavailabl e Encounter Details Date Type Department Care Team (Latest Contact Info) Description 06/15/1998 Outpatient Historical [facility] Family Medicine María [address] [address] Rashard Cary MD NO ADDRESS ON FILE Acute sinusitis, unspecified (Primary Dx) Social History Tobacco Use Types Packs/Day Years Used Date Smoking Tobacco: Never Assessed Comments Unknown Sex and Gender Information Value Date Recorded Sex Assigned at Not on file Legal Sex Female 3:57 AM FRUIT WASHER Gender Identity Not on file Sexual Orientation Not on file documented as of this encounter Plan of Treatment Not on file documented as of this encounter Visit Diagnoses Diagnosis Acute sinusitis, unspecified- Primary documented in this encounter
--- OUTSIDE RECORDS SUMMARY | 2025-05-26 13:00 | XMS_ITS | Encounter Summary ---
Author Organization [facility] Address [address] [place] [address] Care Team Providers Care Dry Press Operator Name Role Phone Unavailable Primary Care Provider Unavailabl e Encounter Details Date Type Department Care Team (Latest Contact Info) Description 04/12/1998 Outpatient Historical [facility] Family Medicine María [address] [address] Rashard Cary MD NO ADDRESS ON FILE Obesity, unspecified (Primary Dx); Malaise and fatigue Social History Tobacco Use Types Packs/Day Years Used Date Smoking Tobacco: Never Assessed Comments Unknown Sex and Gender Information Value Date Recorded Sex Assigned at Not on file Legal Sex Female 3:57 AM ELECTRONICS REPAIR TECHNICIAN Gender Identity Not on file Sexual Orientation Not on file documented as of this encounter Plan of Treatment Not on file documented as of this encounter Visit Diagnoses Diagnosis Obesity, unspecified- Primary Malaise and fatigue documented in this encounter
--- OUTSIDE RECORDS SUMMARY | 2025-05-26 13:00 | XMS_ITS | Encounter Summary ---
Author Organization [facility] Address [address] We[place]: Epic Prelude ADT [place] [address] Care Team Providers Care Product Safety Expert Name Role Phone Unavailable Primary Care Provider Unavailabl e Encounter Details Date Type Department Care Team (Latest Contact Info) Description 01/19/2000 Emergency Juan Carlos Cummings MD NO ADDRESS ON FILE Social History Tobacco Use Types Packs/Day Years Used Date Smoking Tobacco: Never Assessed Comments Unknown Sex and Gender Information Value Date Recorded Sex Assigned at Not on file Legal Sex Female 3:57 AM CARTON FOLDER Gender Identity Not on file Sexual Orientation Not on file documented as of this encounter Plan of Treatment Not on file documented as of this encounter Visit Diagnoses Not on filedocumented in this encounter
--- OUTSIDE RECORDS SUMMARY | 2025-05-26 13:00 | XMS_ITS | Encounter Summary ---
Author Organization [facility] Address [address] [place] [address] Care Team Providers Care Steel Post Installer Supervisor Name Role Phone Unavailable Primary Care Provider Unavailabl e Encounter Details Date Type Department Care Team (Latest Contact Info) Description 08/19/1999 Outpatient Historical [facility] Family Medicine María [place] [id number] [phone] Leslie Raines, DO [address] [place] [address] Acute sinusitis, unspecified (Primary Dx); Pain in joint, forearm Social History Tobacco Use Types Packs/Day Years Used Date Smoking Tobacco: Never Assessed Comments Unknown Sex and Gender Information Value Date Recorded Sex Assigned at Not on file Legal Sex Female 3:57 AM MANAGER MARKETING COMMUNICATION Gender Identity Not on file Sexual Orientation Not on file documented as of this encounter Plan of Treatment Not on file documented as of this encounter Visit Diagnoses Diagnosis Acute sinusitis, unspecified- Primary Pain in joint, forearm documented in this encounter
--- OUTSIDE RECORDS SUMMARY | 2025-05-26 13:00 | XMS_ITS | Clinical Summary ---
Author Organization [facility] Address [address] [place] [address] Phone Care Team Providers Care Sales Data Analyst Name Role Phone Unavailable Primary Care Provider Unavailabl e Social History Tobacco Use Types Packs/Day Years Used Date Smoking Tobacco: Never Assessed Comments Unknown Sex and Gender Information Value Date Recorded Sex Assigned at Not on file Legal Sex Female 3:57 AM SUPERVISOR COVERING AND LINING Gender Identity Not on file Sexual Orientation Not on file Plan of Treatment Health Maintenance Due Date Last Done Comments DTAP/TDAP/TD VACCINES (1 - Tdap) 1986 HEPATITIS B VACCINES (1 of 3 - 19+ 3-dose series) 01/27 HPV/Cotest (21-29) 02/24/1988 CERVICAL CANCER SCREENING 1997 HPV/Cotest (30-65) 1997 PAP SMEAR 1997 BREAST CANCER SCREENING 2007 COLORECTAL SCREENING 02/24/2012 Colorectal Cancer Screening 02/24/2012 FIT-DNA Q 3 years 02/24/2012 FIT/FOBT Q 1 year 02/24/2012 Flex Sig/CT Colonography Q 5 years 02/24/2012 ZOSTER VACCINE (1 of 2) 2017 INFLUENZA VACCINE (#1) 2024 Insurance MEDICARE PART A AND B
--- OUTSIDE RECORDS SUMMARY | 2025-05-26 13:00 | XMS_ITS | Encounter Summary ---
Author Organization [facility] Address [address] [place] [address] Care Team Providers Care Pumpman Name Role Phone Unavailable Primary Care Provider Unavailabl e Encounter Details Date Type Department Care Team (Latest Contact Info) Description 07/25/1999 Outpatient Historical [facility] Family Medicine María [place] [id number] [phone] Leslie Raines, DO [address] [place] [address] Pain in joint, forearm (Primary Dx) Social History Tobacco Use Types Packs/Day Years Used Date Smoking Tobacco: Never Assessed Comments Unknown Sex and Gender Information Value Date Recorded Sex Assigned at Not on file Legal Sex Female 3:57 AM SMELLER Gender Identity Not on file Sexual Orientation Not on file documented as of this encounter Plan of Treatment Not on file documented as of this encounter Visit Diagnoses Diagnosis Pain in joint, forearm- Primary documented in this encounter
--- OUTSIDE RECORDS SUMMARY | 2025-05-26 13:00 | XMS_ITS | Encounter Summary ---
Author Organization [facility] Address [address] [place]: Epic Prelude ADT [place] [address] Care Team Providers Care Lead Machinist Name Role Phone Unavailable Primary Care Provider Unavailabl e Encounter Details Date Type Department Care Team (Latest Contact Info) Description 03/07/2001 Emergency Helder Red MD NO ADDRESS ON FILE Social History Tobacco Use Types Packs/Day Years Used Date Smoking Tobacco: Never Assessed Comments Unknown Sex and Gender Information Value Date Recorded Sex Assigned at Not on file Legal Sex Female 3:57 AM STRUCTURAL STEEL EQUIPMENT ERECTOR Gender Identity Not on file Sexual Orientation Not on file documented as of this encounter Plan of Treatment Not on file documented as of this encounter Visit Diagnoses Not on filedocumented in this encounter
--- OUTSIDE RECORDS SUMMARY | 2025-05-26 13:00 | XMS_ITS | Encounter Summary ---
Author Organization [facility] Address [address] [place] [address] Care Team Providers Care Superintendent Of Generation Name Role Phone Unavailable Primary Care Provider Unavailabl e Encounter Details Date Type Department Care Team (Latest Contact Info) Description 03/10/1998 Outpatient Historical [address] [address] Mickey Plasencia DO NO ADDRESS ON FILE Contusion of hand(s) (Primary Dx) Social History Tobacco Use Types Packs/Day Years Used Date Smoking Tobacco: Never Assessed Comments Unknown Sex and Gender Information Value Date Recorded Sex Assigned at Not on file Legal Sex Female 3:57 AM ACROBATIC DANCER Gender Identity Not on file Sexual Orientation Not on file documented as of this encounter Plan of Treatment Not on file documented as of this encounter Visit Diagnoses Diagnosis Contusion of hand(s)- Primary documented in this encounter
--- OUTSIDE RECORDS SUMMARY | 2025-05-26 13:00 | XMS_ITS | Encounter Summary ---
Author Organization [facility] Address [address] [place] [address] Care Team Providers Care Horizontal Boring Mill Set Up Operator Name Role Phone Unavailable Primary Care Provider Unavailabl e Encounter Details Date Type Department Care Team (Latest Contact Info) Description 02/09/1999 Outpatient Historical [facility] Family Medicine María [address] [address] Rashard Cary MD NO ADDRESS ON FILE Dermatitis due to plant (Primary Dx) Social History Tobacco Use Types Packs/Day Years Used Date Smoking Tobacco: Never Assessed Comments Unknown Sex and Gender Information Value Date Recorded Sex Assigned at Not on file Legal Sex Female 3:57 AM SOFTWARE DEVELOPMENT MANAGER Gender Identity Not on file Sexual Orientation Not on file documented as of this encounter Plan of Treatment Not on file documented as of this encounter Visit Diagnoses Diagnosis Dermatitis due to plant- Primary Contact dermatitis and other eczema due to plants (except food) documented in this encounter
[2025-05-26] MEDS: TETANUS/DIPHTHERIA TOXOIDS ADSORB 0.5 ML SYRINGE (*BKC) IM (13:38)
[2025-05-26] MEDS: NEOMYCIN/POLYMYXIN/BACITRACIN OINTMENT PACKET 1 PACKET TOPICAL (13:38)
--- OUTSIDE RECORDS SUMMARY | 2025-05-26 14:06 | XMS_ITS | Encounter Summary ---
Author Organization [facility] Address [address] [place]: Epic Prelude ADT [place] [address] Care Team Providers Care Machinist Linotype Name Role Phone Unavailable Primary Care Provider Unavailabl e Encounter Details Date Type Department Care Team (Latest Contact Info) Description 01/19/2000 Emergency Juan Carlos Cummings MD NO ADDRESS ON FILE Social History Tobacco Use Types Packs/Day Years Used Date Smoking Tobacco: Never Assessed Comments Unknown Sex and Gender Information Value Date Recorded Sex Assigned at Not on file Legal Sex Female 3:57 AM IMPORT COORDINATION AND PRODUCTION HEAD Gender Identity Not on file Sexual Orientation Not on file documented as of this encounter Plan of Treatment Not on file documented as of this encounter Visit Diagnoses Not on filedocumented in this encounter
--- OUTSIDE RECORDS SUMMARY | 2025-05-26 14:06 | XMS_ITS | Encounter Summary ---
Author Organization [facility] Address [address] [place] [address] Care Team Providers Care Collection Systems Worker Name Role Phone Unavailable Primary Care Provider Unavailabl e Encounter Details Date Type Department Care Team (Latest Contact Info) Description 04/12/1998 Outpatient Historical [facility] Family Medicine María [address] [address] Rashard Cary MD NO ADDRESS ON FILE Obesity, unspecified (Primary Dx); Malaise and fatigue Social History Tobacco Use Types Packs/Day Years Used Date Smoking Tobacco: Never Assessed Comments Unknown Sex and Gender Information Value Date Recorded Sex Assigned at Not on file Legal Sex Female 3:57 AM HOSPITAL EDUCATION COORDINATOR Gender Identity Not on file Sexual Orientation Not on file documented as of this encounter Plan of Treatment Not on file documented as of this encounter Visit Diagnoses Diagnosis Obesity, unspecified- Primary Malaise and fatigue documented in this encounter
--- OUTSIDE RECORDS SUMMARY | 2025-05-26 14:06 | XMS_ITS | Encounter Summary ---
Author Organization [facility] Address [address] [place] [address] Care Team Providers Care Marble Polisher Hand Name Role Phone Unavailable Primary Care Provider Unavailabl e Encounter Details Date Type Department Care Team (Latest Contact Info) Description 02/09/1999 Outpatient Historical [facility] Family Medicine María [address] [address] Rashard Cary MD NO ADDRESS ON FILE Dermatitis due to plant (Primary Dx) Social History Tobacco Use Types Packs/Day Years Used Date Smoking Tobacco: Never Assessed Comments Unknown Sex and Gender Information Value Date Recorded Sex Assigned at Not on file Legal Sex Female 3:57 AM TOWER EQUIPMENT INSTALLER Gender Identity Not on file Sexual Orientation Not on file documented as of this encounter Plan of Treatment Not on file documented as of this encounter Visit Diagnoses Diagnosis Dermatitis due to plant- Primary Contact dermatitis and other eczema due to plants (except food) documented in this encounter
--- OUTSIDE RECORDS SUMMARY | 2025-05-26 14:06 | XMS_ITS | Encounter Summary ---
Author Organization [facility] Address [address] [place] [address] Care Team Providers Care Electric Refrigerator Servicer Name Role Phone Unavailable Primary Care Provider Unavailabl e Encounter Details Date Type Department Care Team (Latest Contact Info) Description 07/25/1999 Outpatient Historical [facility] Family Medicine María [place] [id number] [phone] Leslie Raines, DO [address] [place] [address] Pain in joint, forearm (Primary Dx) Social History Tobacco Use Types Packs/Day Years Used Date Smoking Tobacco: Never Assessed Comments Unknown Sex and Gender Information Value Date Recorded Sex Assigned at Not on file Legal Sex Female 3:57 AM RESEARCH/PROGRAM DIRECTOR Gender Identity Not on file Sexual Orientation Not on file documented as of this encounter Plan of Treatment Not on file documented as of this encounter Visit Diagnoses Diagnosis Pain in joint, forearm- Primary documented in this encounter
--- OUTSIDE RECORDS SUMMARY | 2025-05-26 14:06 | XMS_ITS | Encounter Summary ---
Author Organization [facility] Address [address] [place] [address] Care Team Providers Care Sorting Livestock Worker Name Role Phone Unavailable Primary Care Provider Unavailabl e Encounter Details Date Type Department Care Team (Latest Contact Info) Description 08/19/1999 Outpatient Historical [facility] Family Medicine María [place] [address] [address] Leslie Raines, DO [address] [place] [address] Acute sinusitis, unspecified (Primary Dx); Pain in joint, forearm Social History Tobacco Use Types Packs/Day Years Used Date Smoking Tobacco: Never Assessed Comments Unknown Sex and Gender Information Value Date Recorded Sex Assigned at Not on file Legal Sex Female 3:57 AM CERTIFIED FAMILY MEDIATOR Gender Identity Not on file Sexual Orientation Not on file documented as of this encounter Plan of Treatment Not on file documented as of this encounter Visit Diagnoses Diagnosis Acute sinusitis, unspecified- Primary Pain in joint, forearm documented in this encounter
--- OUTSIDE RECORDS SUMMARY | 2025-05-26 14:06 | XMS_ITS | Encounter Summary ---
Author Organization [facility] Address [address] [place] [address] Care Team Providers Care Blister Pack Operator Name Role Phone Unavailable Primary Care Provider Unavailabl e Encounter Details Date Type Department Care Team (Latest Contact Info) Description 10/18/1999 Outpatient Historical [facility] [address] [address] Mickey Plasencia DO NO ADDRESS ON FILE Open wound of hand except finger(s) alone, without mention of complication (Primary Dx) Social History Tobacco Use Types Packs/Day Years Used Date Smoking Tobacco: Never Assessed Comments Unknown Sex and Gender Information Value Date Recorded Sex Assigned at Not on file Legal Sex Female 3:57 AM CAMERA REPAIRMAN Gender Identity Not on file Sexual Orientation Not on file documented as of this encounter Plan of Treatment Not on file documented as of this encounter Visit Diagnoses Diagnosis Open wound of hand except finger(s) alone, without mention of complication- Primary documented in this encounter
--- OUTSIDE RECORDS SUMMARY | 2025-05-26 14:06 | XMS_ITS | Encounter Summary ---
Author Organization [facility] Address [address] [place] [address] Care Team Providers Care Assembly Machine Tool Setter Name Role Phone Unavailable Primary Care Provider Unavailabl e Encounter Details Date Type Department Care Team (Latest Contact Info) Description 06/15/1998 Outpatient Historical [facility] Family Medicine María [address] [address] Rashard Cary MD NO ADDRESS ON FILE Acute sinusitis, unspecified (Primary Dx) Social History Tobacco Use Types Packs/Day Years Used Date Smoking Tobacco: Never Assessed Comments Unknown Sex and Gender Information Value Date Recorded Sex Assigned at Not on file Legal Sex Female 3:57 AM PAINTER AND DECORATOR APPRENTICE Gender Identity Not on file Sexual Orientation Not on file documented as of this encounter Plan of Treatment Not on file documented as of this encounter Visit Diagnoses Diagnosis Acute sinusitis, unspecified- Primary documented in this encounter
--- OUTSIDE RECORDS SUMMARY | 2025-05-26 14:06 | XMS_ITS | Encounter Summary ---
Author Organization [facility] Address [address] [place] [address] Care Team Providers Care Curb Setter Name Role Phone Unavailable Primary Care Provider Unavailabl e Encounter Details Date Type Department Care Team (Latest Contact Info) Description 03/10/1998 Outpatient Historical [address] [address] Mickey Plasencia DO NO ADDRESS ON FILE Contusion of hand(s) (Primary Dx) Social History Tobacco Use Types Packs/Day Years Used Date Smoking Tobacco: Never Assessed Comments Unknown Sex and Gender Information Value Date Recorded Sex Assigned at Not on file Legal Sex Female 3:57 AM WELDING MACHINE OPERATOR HELPER GAS Gender Identity Not on file Sexual Orientation Not on file documented as of this encounter Plan of Treatment Not on file documented as of this encounter Visit Diagnoses Diagnosis Contusion of hand(s)- Primary documented in this encounter
--- OUTSIDE RECORDS SUMMARY | 2025-05-26 14:07 | XMS_ITS | Encounter Summary ---
Author Organization [facility] Address [address] [place] [address] Care Team Providers Care Sap Specialist Name Role Phone Unavailable Primary Care Provider Unavailabl e Encounter Details Date Type Department Care Team (Late st Contact Info) Description 06/18/[address] [facility] [address] [place] [address] Lakesha Malone FNP NO ADDRESS ON FILE SPRAIN LUMBAR REGION (Primary Dx) Social History Tobacco Use Types Packs/Day Years Used Date Smoking Tobacco: Never Assessed Comments Unknown Sex and Gender Information Value Date Recorded Sex Assigned at Not on file Legal Sex Female 3:57 AM CAUSTICS LOADER Gender Identity Not on file Sexual Orientation Not on file documented as of this encounter Plan of Treatment Not on file documented as of this encounter Procedures Procedure Name Priority Date/Time Associated Diagnosis Comments POC CREATININE Routine 06/19/2004 3:06 AM CAUSTICS LOADER documented in this encounter Results * (ABNORMAL) POC CREATININE (06/19/2004 3:06 AM CAUSTICS LOADER) CREATININE POC 0.5(L) 0.7 - 1.2 mg/dL INTERFACE SYSTEM 06/19/2004 3:06 AM CAUSTICS LOADER us J Frank Badillo MD POINT OF CARE TESTING Final Res ult INTERFACE SYSTEM Refer to clinic/hospital department documented in this encounter Visit Diagnoses Diagnosis Sprain of lumbar region- Primary documented in this encounter
--- OUTSIDE RECORDS SUMMARY | 2025-05-26 14:07 | XMS_ITS | Clinical Summary ---
Author Organization [facility] Address [address] [place] [address] Phone Care Team Providers Care Lens Cementer Name Role Phone Unavailable Primary Care Provider Unavailabl e Social History Tobacco Use Types Packs/Day Years Used Date Smoking Tobacco: Never Assessed Comments Unknown Sex and Gender Information Value Date Recorded Sex Assigned at Not on file Legal Sex Female 3:57 AM CORDUROY BRUSHER OPERATOR Gender Identity Not on file Sexual Orientation [...]
--- OUTSIDE RECORDS SUMMARY | 2025-05-26 14:07 | XMS_ITS | Encounter Summary ---
Author Organization [facility] Address [address] [place]: Epic Prelude ADT [place] [address] Care Team Providers Care Edging Supervisor Name Role Phone Unavailable Primary Care Provider Unavailabl e Encounter Details Date Type Department Care Team (Latest Contact Info) Description 03/07/2001 Emergency Helder Red MD NO ADDRESS ON FILE Social History Tobacco Use Types Packs/Day Years Used Date Smoking Tobacco: Never Assessed Comments Unknown Sex and Gender Information Value Date Recorded Sex Assigned at Not on file Legal Sex Female 3:57 AM CURTAIN STRETCHER ASSEMBLER Gender Identity Not on file Sexual Orientation Not on file documented as of this encounter Plan of Treatment Not on file documented as of this encounter Visit Diagnoses Not on filedocumented in this encounter
--- OUTSIDE RECORDS SUMMARY | 2025-05-26 14:07 | XMS_ITS | Clinical Summary ---
Author Organization [facility] Address [address] [place] [address] Care Team Providers Care Assistant City Attorney Name Role Phone Karuna Akins NP Primary Care Provider Allergies Active Allergy Reactions Criticality Noted Date Comments Clonidine Hcl Agitation Low 09/05/2018 Doxazosin Vomiting Low 09/05/2018 Flu Vaccine [id number](5yrup)Pf Vomiting Low 02/01 Monosodium Glutamate Swelling High [...] on file Legal Sex Female 3:29 AM SENIOR PRODUCT DEVELOPMENT MANAGER Gender Identity Not on file Sexual Orientation Not on file Last Filed Vital Signs Vital Sign Reading Time Taken Comments Blood Pressure 124/80 01/14/2025 1:20 PM CDT Pulse 77 01/14/2025 1:20 PM CDT Temperature 36.7 C (98 F) 06/19/2024 8:36 AM SENIOR PRODUCT DEVELOPMENT MANAGER Respiratory Rate 18 01/14/2025 1:20 PM CDT [...] Genotypes (11/05/2023 1:37 PM CDT) CLINICAL INFORMATION: [facility] Comment:Postmenopausal LMP [...] has been evaluated with computer assisted technology. Hydrogeologist [facility] Comment: CAK, CT(ASCP) CT Screening Location: [place] [address] [place] [address] Comment [facility] Comment: EXPLANATORY NOTE: [...] High Risk E6/E7 Not Detected NOT DETECTED [employer] Comment: Not Detected High Risk HPV types (16,18,31,33,35,39,45,51,52, 56,58,59,66,68) were not detected. Other HPV types which cause anogenital lesions may be present. The significance of the other types of HPV in malignant processes has not been established. Methodology: Real Time PCR Thin prep 11/05/2023 1:37 PM CDT 11/06/2023 4:02 AM CDT Karuna Akins SANITATION MANAGER LAB CYTOLOGY ORDERABLES Final Result [facility] [address] [place] [address] [address] White/[place] [address] [facility] [place] [address] * HM COLONOSCOPY (04/22/2017) HM Colonoscopy Normal Comment:Dr. Gallagher in [facility] s [place] Historical Provider [facility] Final Result * Screening Mammogram 2D Bilateral [...] Alba M.D. MD: 04:39 PM 04:39 PM [facility] [EOD] Narrative 03/25/2013 4:42 PM CDT [...] Alba M.D. MD: 04:39 PM 04:39 PM [facility] [EOD] Karuna Akins SANITATION MANAGER IMG MAMMO PROCEDURES Fi nal Result from Last 3 Months or Most Recently Relevant to Health Maintenance Insurance Care Teams Assistant City Attorney Relationship Specialty Start Date End Date Karuna Akins NP PCP - General Family Medicine 08/30/23
--- OUTSIDE RECORDS SUMMARY | 2025-05-26 14:07 | XMS_ITS | Clinical Summary ---
Author Organization [facility] Address [address] [place] [address] Care Team Providers Care Molten Iron Pourer Name Role Phone Karuna Akins Primary Care Provider [phone] Allergies Active Allergy Reactions Criticality Noted Date [...] patient's age to complete this topic Insurance [facility] Care Teams Molten Iron Pourer Relationship Specialty Start Date End Date Karuna Akins APNP PCP - General NURSE PRACTITIONER 01/05/24
--- NOTE | 2025-05-26 14:08 | ED.LOWEXIN ---
HPI - Extremity Injury (Lower) General Chief Complaint: Extremity Injury, Lower Stated Complaint: fall; left knee pain Time Seen by Provider: 05/26/25 12:48 Source: patient Mode of arrival: ambulatory History of Present Illness HPI Narrative: 60-year-old with a history of hypertension here with a complains of left knee injury. Patient states that she missed a step and fell on her left knee early this morning. She denies any head and neck injuries. Has minor abrasion on the left knee. complaint: knee injury Onset (ago): day(s) (1) Place: home Severity: moderate Relieving factors: nothing Exacerbating factors: nothing Context: fall Other symptoms: none Related Data Home Medications ?Medication ?Instructions ?Recorded ?Confirmed ?Last Taken ?Type amlodipine 10 mg tablet 10 mg PO DAILY 05/15/19 05/15/19 Unknown History losartan 25 mg tablet 25 mg PO DAILY 05/15/19 05/15/19 Unknown History tramadol 50 mg tablet 50 mg PO Q6H PRN Pain 05/15/19 05/15/19 Unknown History zolpidem 10 mg tablet (Ambien) 10 mg PO HS 05/15/19 05/15/19 Unknown History losartan 100 mg tablet 100 mg PO DAILY 05/26/25 Unknown History Allergies Allergy/AdvReac Type Severity Reaction Status Date / Time clonidine Allergy Intermediate Anxiety Verified 05/26/25 13:22 monosodium glutamate Allergy Unknown Verified 05/26/25 13:22 Review of Systems Review of Systems: All systems reviewed & are unremarkable except as noted in HPI and below Constitutional: Constitutional: Reports no additional constitutional complaints Eyes: Eyes: Reports no additional eye complaints ENT: Reports system reviewed and no additional complaints, except as documented Cardiovascular: Cardiovascular: Reports no additional cardiovascular complaints Respiratory: Respiratory: Reports no additional respiratory complaints Musculoskeletal: Musculoskeletal: Reports as per HPI Neurologic: Reports system reviewed and no additional complaints, except as documented [facility] Past Medical History Medical History (Updated 05/26/25 @ 14:10 by Ahmet Ovalle MD) HTN (hypertension) Kidney stones Social History Social History Smoking status: Never smoker Alcohol intake: never Substance use: never Substance use type: does not use Gender identity (if verbalized by the patient): Female Spiritual care concerns: No Agree to blood products: Yes Exam Narrative: GENERAL: Well-appearing, well-nourished, and in no acute distress. HEAD: Normocephalic, atraumatic. EYES: PERRLA and EOMI. ENT: Nares clear, no rhinorrhea or epistaxis. Mucous membranes moist. NECK: Supple. CHEST: Clear to auscultation. No respiratory distress. HEART: Regular rate ABDOMEN: Soft, nontender, nondistended, normal active bowel sounds. EXTREMITIES: Normal range of motion. No edema. Minor abrasion on the left knee, no deformity no joint effusion SKIN: Warm, dry, no rash. NEURO: No focal deficits. Alert and oriented x3. PSYCH: Normal mood and affect. Course Course Emergency Course: nformed her about the Xray findings , advised to keep the wound clean take meds as prescribed. Vital Signs Vital signs: Vital Signs Temperature 36.4 C L 05/26/25 12:38 Pulse Rate 85 05/26/25 12:38 Respiratory Rate 16 05/26/25 12:38 Blood Pressure 127/78 05/26/25 12:38 Pulse Oximetry 98 05/26/25 12:38 Oxygen Delivery Room Air 05/26/25 12:38 Temperature 36.4 C L 05/26/25 12:38 Pulse Rate 85 05/26/25 12:38 Respiratory Rate 16 05/26/25 12:38 Blood Pressure 127/78 05/26/25 12:38 Pulse Oximetry 98 05/26/25 12:38 Oxygen Delivery Room Air 05/26/25 12:38 [facility] Differential Diagnosis Differential Diagnosis: contusion , fx ,dislocation Medical Records I have reviewed the following patient records and this information was taken into consideration when formulating the assessment and plan.: previous labs and previous ER visits Lab Data [facility] Lab Attestation statement: I personally reviewed the patient's lab results. Imaging Data Radiologist's impression: ITS Impressions Knee X-Ray 05/26/25 13:27 IMPRESSION: 1. Small to moderate-sized left knee joint effusion without evident acute osseous abnormality. 2. Mild tricompartmental osteoarthritis of the left knee. Discharge Plan Discharge Clinical Impression: Abrasion Contusion of knee, left Qualifiers: Encounter type: initial encounter Qualified Code(s): S80.02XA - Contusion of left knee, initial encounter Patient Disposition: Home Condition: Stable Instructions: Contusion in Adults (ED), Abrasion (ED) Additional Instructions: can take Tylenol or Ibuprofen for pain Patient Language: Dutch Prescriptions: New ibuprofen 600 mg tablet 600 mg PO TID PRN (Reason: pain) Qty: 20 0RF No Action amlodipine 10 mg tablet 10 mg PO DAILY tramadol 50 mg Tablet 50 mg PO Q6H PRN (Reason: Pain) losartan 25 mg Tablet 25 mg PO DAILY zolpidem [Ambien] 10 mg Tablet 10 mg PO HS acetaminophen 500 mg Tablet 1,000 mg PO TID 5 Days Qty: 30 0RF losartan 100 mg tablet 100 mg PO DAILY Follow-up/Referrals: UNKNOWN,DOCTOR [Primary Care Provider] Time of Disposition: 14:10
[2025-05-26 14:14] VITALS: BP 115/81; PULSE 85; RESP 20; TEMP 36.7; O2SAT 95
== END 2025-05-26 14:21 | disposition home or self-care (01) ==
PROVIDERS: Emergency Provider Family Medicine
DX: S80.02XA Contusion of left knee, initial encounter (principal); I10 Essential (primary) hypertension; Z79.899 Other long term (current) drug therapy; W10.9XXA Fall (on) (from) unspecified stairs and steps, initial encounter; Z23 Encounter for immunization
CPT/HCPCS: 73562; 90471; 90714; 99283